=== PATIENT | female | born 1990 | race Two or more races ===

== ENCOUNTER 2017-04-09 05:36 | Inpatient (IN) | payer BC ==
[~2017-04-09] VITALS: Ht 170.2 cm; Wt 102.7 kg
[2017-04-09] VITALS (7 sets, daily range): BP systolic 111–154; BP diastolic 57–76
[~2017-04-09 05:36] MED LIST: CHOL100011 PO; PREN1TAB60 PO
[2017-04-09] MEDS ORDERED: OXYTOCIN 30U/ 0.9% NaCL 500ML 500 ML IV ONE (06:44)
[2017-04-09] MEDS: AMPICILLIN 2 GM in SODIUM CHLORIDE 0.9% 50 ML IVPB STA ×2 (06:44→07:07)
[2017-04-09] MEDS: LACTATED RINGERS 1,000 ML IV SCH ×3 (06:58→22:25)
[2017-04-09] MEDS ORDERED: FENTANYL PF 100 MCG/2ML IVPush PRN (07:00)
[2017-04-09] MEDS ORDERED: ONDANSETRON 2MG/ML, 2ML IVPush PRN (07:00)
[2017-04-09] MEDS ORDERED: OXYTOCIN 30U/ 0.9% NaCL 500ML 0 ML ONE (07:00)
[2017-04-09] MEDS ORDERED: FENTANYL PF 100 MCG/2ML IV PRN (07:00)
[2017-04-09] MEDS ORDERED: TERBUTALINE 1 MG/ML, 1ML SQ PRN (07:00)
[2017-04-09] MEDS ORDERED: TERBUTALINE 1 MG/ML, 1ML IVPush PRN ×2 (07:00)
[2017-04-09 07:26] LABS: ASPARTATE AMINO TRANSFERASE 16 U/L (15-37); BLOOD UREA NITROGEN 5 mg/dL (7-18)
[2017-04-09] MEDS ORDERED: NEWBORN KIT ONE (07:31)
[2017-04-09] MEDS ORDERED: LIDOCAINE 1%, 20ML ONE (07:31)
[2017-04-09] MEDS ORDERED: MISOPROSTOL 200 MCG TABLET ONE (07:31)
[2017-04-09] MEDS ORDERED: AMPICILLIN 1 GM in SODIUM CHLORIDE 0.9% 50 ML IV SCH (11:00)
[2017-04-09] MEDS ORDERED: FENTANYL PF 100 MCG/2ML ONE (11:01)
[2017-04-09] MEDS ORDERED: IBUPROFEN 600 MG TABLET ONE (12:11)
[2017-04-09] MEDS ORDERED: BUPIVACAINE/PF 0.25% ONE (12:18)
[2017-04-09] MEDS ORDERED: LIDOCAINE/PF 1.5%-EPI 1:200K, 30ML ONE (12:18)
[2017-04-09] MEDS ORDERED: FENTANYL/BUPIV./NS/PF 250 ML EPIDCONT ONE (12:18)
[2017-04-09] MEDS: IBUPROFEN 600 MG TABLET PO PRN ×2 (12:19→18:38)
[2017-04-09] MEDS: OXYTOCIN 30U/ 0.9% NaCL 500ML 500 ML IV SCH (19:43)
[2017-04-09] MEDS ORDERED: HYDROcodone/APAP 5/325 TABLET PO PRN (20:00)
[2017-04-09] MEDS: DOCUSATE 100 MG CAPSULE PO PRN (22:25)
[2017-04-10 01:35] VITALS: BP 146/67
[2017-04-10] MEDS: IBUPROFEN 600 MG TABLET PO PRN ×3 (02:30→14:41)
[2017-04-10] MEDS: OXYTOCIN 30U/ 0.9% NaCL 500ML 500 ML IV SCH (04:20)
[2017-04-10 04:27] VITALS: BP 124/54
[2017-04-10] MEDS: LACTATED RINGERS 1,000 ML IV SCH (06:25)
[2017-04-10] MEDS ORDERED: PRENATAL VIT/IRON/FA 1 EACH TABLET PO SCH (09:00)
[2017-04-10] MEDS: DOCUSATE 100 MG CAPSULE PO PRN (09:16)
[2017-04-10] MEDS ORDERED: IBUP-1222 PO (14:06)
[2017-04-10] MEDS ORDERED: DOCU-30 PO (14:06)
== END 2017-04-10 15:02 | disposition home or self-care (01) | DRG 775 ==
LOC: LDOP 05:36 → LDIP 06:57 → 2NW 14:12
PROVIDERS: ADMIT Student in an Organized Health Care Education/Training Program; ATTEND Student in an Organized Health Care Education/Training Program
PROC: 10E0XZZ Delivery of Products of Conception, External Approach (ICD-10-PCS; principal; 2017-04-09)
DX: O99.824 Streptococcus B carrier state complicating childbirth (principal); O76 Abnormality in fetal heart rate and rhythm complicating labor and delivery; Z37.0 Single live birth; Z3A.39 39 weeks gestation of pregnancy; O70.0 First degree perineal laceration during delivery
CPT/HCPCS: 36415; 76815; 80053; 81001; 82248; 82570; 84156; 84550; 85025; 86850; 86900; 89060; J0290; J3010; J7120; Q0114